=== PATIENT | female | born 1995 | race Caucasian/White ===

== ENCOUNTER 2021-09-06 05:28 | Emergency (ER) | payer BC, MEDICAID ==
[~2021-09-06] VITALS: Ht 170 cm; Wt 105.1 kg
--- NOTE | 2021-09-06 05:54 | ED Integumentary General ---
General Chief Complaint: Allergic Reaction Stated Complaint: BOTH HAND SWELLING & HOT Source: patient Exam Limitations: no limitations History of Present Illness Date Seen by Provider: Sep 06, 2021 Time Seen by Provider: 05:33 Initial Comments 25-year-old female with no pertinent past medical history coming in due to bilateral hand swelling. She noticed her hands were itching and started swelling around midnight last night. She immediately took her ring off and washed her hands. They persisted and continued to swell throughout the night, but never went up her wrist or arms. Does not have any redness or rash anywhere else on her body. Nothing like this is ever happened before. Denies using any new soaps, detergents, lotions, or anything new. Has not taken any medications at all for over a week. Says she has not really had any exposure to cold weather in the past couple days. Is otherwise denying any other acute complaints including no nausea, vomiting, diarrhea, fever, chills, weakness, numbness, chest pain, shortness of breath, abdominal pain, or any other concerns Allergies and Home Medications Allergies Coded Allergies: No Known Drug Allergies (Unverified , 09/06/21) Patient Home Medication List Home Medication List Reviewed: Yes Review of Systems Review of Systems Constitutional: No chills, No fever EENTM: No blurred vision Respiratory: No cough Cardiovascular: No chest pain Gastrointestinal: No abdominal pain Genitourinary: no symptoms reported Musculoskeletal: joint swelling Skin: rash Psychiatric/Neurological: No Symptoms Reported Endocrine: No Symptoms Reported Hematologic/Lymphatic: No Symptoms Reported All Other Systems Reviewed Negative Unless Noted: Yes Past Cbtvxei-Eutpki-Wbtgib Hx Patient Social History Tobacco Use?: Yes Tobacco type used: Cigarettes Substance use?: No Alcohol Use?: No Pt feels they are or have been: No Past Medical History Surgery/Hospitalization HX: anx/dep, t/a Surgeries: Yes Appendectomy Physical Exam Vital Signs Vital Signs - First Documented 09/06/21 05:41 Temp 36.9 Pulse 91 Resp 18 B/P (MAP) 159/93 (115) Pulse Ox 98 O2 Delivery Room Air Capillary Refill : General Appearance: WD/WN, no apparent distress HEENT: PERRL/EOMI, normal ENT inspection, pharynx normal Neck: non-tender, full range of motion, supple, normal inspection Cardiovascular: regular rate, rhythm, no edema, no murmur Respiratory: chest non-tender, lungs clear, normal breath sounds, no respiratory distress, no accessory muscle use Gastrointestinal: normal bowel sounds, non tender, soft; No distended, No guarding, No rebound Back: normal inspection, no CVA tenderness, no vertebral tenderness Extremities: normal range of motion, non-tender, normal inspection, no pedal edema, no calf tenderness, normal capillary refill, other (Bilateral hands with swelling and mild redness that is blanching, no rash anywhere else, full ROM of fingers and wrists) Neurologic/Psychiatric: no motor/sensory deficits, alert, normal mood/affect Skin: normal color, warm/dry Lymphatic: no adenopathy Progress/Results/Core Measures Results/Orders My Orders Orders - MARA ARCEO MD Dexamethasone Injection (Decadron Injec (09/06/21 06:00) Diphenhydramine Injection (Benadryl Inje (09/06/21 06:00) Famotidine Tablet (Pepcid Tablet) (09/06/21 06:00) Dexamethasone Injection (Decadron Inje (09/06/21 06:00) Vital Signs/I&O 09/06/21 05:41 Temp 36.9 Pulse 91 Resp 18 B/P (MAP) 159/93 (115) Pulse Ox 98 O2 Delivery Room Air Progress Progress Note : Progress Note 25-year-old female with above history coming in due to bilateral hand swelling and redness. ABCs were intact and vitals were stable on presentation. Physical exam with erythema on all of her digits going up part of her hand with some swelling and full range of motion of her digits. It appears similar to how chilblains versus Raynaud's phenomenon versus localized allergic reaction versus less likely a vasculitis given how rapidly it progressed. It has not progressed beyond her fingers for over 6 hours now and she has no other systemic symptoms. We will treat her as if this is allergic with steroids, Benadryl, Pepcid, but it is very likely this could be cold temperature related. It is possible she has some type of autoimmune disorder that is developing. She does not appear to have any severe symptoms at this time. I will have her follow up with her primary if she does not have improvement. Departure Impression Primary Impression: Hand swelling Qualified Codes: M79.89 - Other specified soft tissue disorders Disposition: HOME, SELF-CARE Condition: Stable Departure-Patient Inst. Decision time for Depature: 06:02 Referrals: ANDREW MOORE MD (PCP/Family) Primary Care Physician Patient Instructions: Swelling Add. Discharge Instructions: I've sent a round of steroids to your pharmacy that you will need to start to barrera. Follow up with your primary in the next couple of days if things are not improving. This could be anything from allergies to something called chilblains versus Raynauds phenomenon versus even something autoimmune. If it gets better, then you do not need to follow up with anybody as it may just be something that got on your hands from your dog. If it progresses then your primary doctor may need to order some blood work. Scripts Methylprednisolone (Methylprednisolone Dose Pack) 4 Mg Tab.ds.pk 4 MG PO UD for 6 Days, #21 PKG PER DOSE PACK INSTRUCTIONS Prov: MARA ARCEO MD 09/06/21 Work/School Note: Work Release Form Date Seen in the Emergency Department: Sep 06, 2021 Return to Work: Sep 07, 2021 Restrictions: No Restrictions MARA ARCEO MD Sep 06, 2021 05:54
[2021-09-06] MEDS ORDERED: diphenhydrAMINE 50 MG/ML INJ (BENADRYL) IM ONE (06:00)
[2021-09-06] MEDS ORDERED: FAMOTIDINE 20 MG (PEPCID) TABLET PO ONE (06:00)
[2021-09-06] MEDS ORDERED: METH4TAB10 PO (06:10)
[2021-09-06 06:15] VITALS: BP 124/80
== END 2021-09-06 06:17 | disposition home or self-care (01) ==
LOC: ER 05:38
DX: R22.33 Localized swelling, mass and lump, upper limb, bilateral (principal); Z72.0 Tobacco use
CPT/HCPCS: 99284